=== PATIENT | male | born 1990 | race American Indian/Alaskan Native ===

== ENCOUNTER 2019-10-06 12:26 | Outpatient (CLI) | payer OTHER ==
--- NOTE | 2019-10-06 13:59 | XRay Report ---
LUMBOSACRAL SPINE 5 VIEWS INDICATION: M54.5 LOW BACK PAIN. COMPARISON: None. IMPRESSION: Normal alignment. No significant discogenic DJD or facet arthropathy. No acute osseous or soft tissue abnormality. Signer Name: Nain Blank Jr, MD Signed: 10/06/2019 1:55 PM Workstation Name: [id number]
== END 2019-10-06 12:27 | disposition home or self-care (01) ==
LOC: XRAY 12:26
DX: R94.31 Abnormal electrocardiogram [ECG] [EKG] (principal); M54.5 Low back pain
CPT/HCPCS: 72110; 93005; 93010